=== PATIENT | female | born 1975 | race Caucasian/White ===

== ENCOUNTER → 2017-03-22 | Outpatient (CLI) | payer MEDICAID | LOC: FCPNEURO 23:54 | PROVIDERS: ATTEND Physician Assistant Medical | DX: G47.33 Obstructive sleep apnea (adult) (pediatric) (principal) | CPT/HCPCS: 80305 ==

== ENCOUNTER 2017-04-09 11:20 | Emergency (ER) | payer MEDICAID ==
[2017-04-09 11:35] VITALS: BP 138/88; PULSE 94; RESP 18; TEMP 98; O2SAT 99
--- NOTE | 2017-04-09 12:07 | EDPHY ---
H & P Stated Complaint: c/o rt neck pain x 2 days - denies trauma Time Seen by Provider: 04/09/17 11:51 HPI/ROS: Chief Complaint: Neck pain HPI: 42-year-old woman woke yesterday morning with right-sided neck pain and spasm. Pain is persisted for the last 2 days. She did take 4 mg of Advil yesterday with no relief. She went to a chiropractor this morning who referred her here for further evaluation. Denies any injuries. No numbness or weakness. Pain is entirely on the right side of her neck going up to her scalp and down her back. She has a mild headache associated with this. No midline tenderness. No difficulty using her arms or legs. No change with bowel or bladder. No fevers or chills. No nausea or vomiting. ROS: 10 point Review of Systems is negative except as noted in the HPI. PMH: None Social History: No smoking, no alcohol, no recreational drug use Family History: non-contributory Physical Exam: Gen: Awake, Alert, No Distress HEENT: Nose: no rhinorrhea Eyes: PERRLA, EOMI Mouth: Moist mucosa Neck: Supple, no meningismus, she has got noted significant spasm in the right trapezius extending from the scalp down to her mid back entirely on the right- hand side. Moderate tenderness to palpation. No midline tenderness step-offs. She has flexion and extension of her neck without any midline tenderness or pain. Back: no CVA tenderness, no midline tenderness Ext: no edema, non-tender Skin: no rash Neuro: CN II-XII intact, Sensation grossly intact, Strength 5/5 in bilateral upper and lower extremities - Personal History LMP (Females 10-55): IUD In Place Current Tetanus Diphtheria and Acellular Pertussis (TDAP): Yes - Medical/Surgical History Other PMH: Med hx-depression,kidney stones. Surg-lithotripsy - Social History Smoking Status: Never smoked Constitutional: Initial Vital Signs Temperature (C) 36.6 C 04/09/17 11:32 Heart Rate 94 04/09/17 11:32 Respiratory Rate 18 04/09/17 11:32 Blood Pressure 138/88 H 04/09/17 11:32 O2 Sat (%) 99 04/09/17 11:32 O2 Delivery Mode Room Air Allergies/Adverse Reactions: No Known Allergies Allergy (Verified 10/13/16 15:51) Home Medications: Medication Instructions Recorded NK [No Known Home Meds] 04/09/17 Medical Decision Making ED Course/Re-evaluation: Patient with atraumatic right neck spasm. She has not been taking adequate anti -inflammatories. I have advised her to take regular anti-inflammatories, ice, keeping active. Will send her home with a short course of hydrocodone and diazepam in for the short term. I have also suggested that acupuncture might be of benefit for her. There is no evidence of acute is neurologic or spinal process at this time. There are no red flags. She will follow up with primary care physician for further evaluation. Departure - Departure Disposition: Home, Routine, Self-Care Clinical Impression: Neck muscle spasm Condition: Good Instructions: Spasmodic Torticollis (ED) Additional Instructions: Take 600 mg of ibuprofen 3 times a day. Apply ice for 15 minutes of every hour while awake for the next 2 days, you may then alternate ice with heat. If you're still having pain after the ibuprofen you may take hydrocodone with acetaminophen as needed. If you continue to have pain and spasm you may take a diazepam. Do not rest, moderate normal daily activity is recommended for improvement. You may expect to have improvement every day but symptoms may last for the next week or 2. Acupuncture may be useful. Follow up with primary care physician in 3-4 days if symptoms are not improving. Return emergency depart for increasing pain, numbness or weakness in her arms or legs, fevers, chills, or any other concerns. Referrals: [facility] [Outside] - As per Instructions
[2017-04-09] MEDS ORDERED: DIAZEPAM 5 MG PREPACK#4 BTL TAKEHOME ONE (12:09)
[2017-04-09] MEDS ORDERED: HYDROCOD/APAP 5/325 PREPACK#6 BTL TAKEHOME ONE (12:09)
== END 2017-04-09 12:20 | disposition home or self-care (01) ==
LOC: CED 11:20
DX: M62.838 Other muscle spasm (principal)